=== PATIENT | female | born 1965 | race Caucasian/White ===

== ENCOUNTER 2017-04-10 06:15 | Emergency (ER) | payer OTHER ==
[~2017-04-10] VITALS: Ht 167.6 cm; Wt 90.2 kg
[~2017-04-10 06:15] MED LIST: ASPI-496 PO; CALC-680 PO; ESTR2TAB INJ; NIFE30TA2 PO; NIFE60TA2 PO; OXYC-302 PO; PNV1TABL4 PO; PROG50VI INJ
[2017-04-10] MEDS ORDERED: SODIUM CHLORIDE 0.9% 1,000 ML IV ONE (06:48)
[2017-04-10] MEDS ORDERED: SODIUM CHLORIDE 0.9% 1,000ML IVBOLUS ONE (07:00)
[2017-04-10] MEDS ORDERED: KETOROLAC 30 MG/1 ML IM ONE (07:00)
[2017-04-10] MEDS ORDERED: KETOROLAC 30 MG/1 ML ONE (07:08)
[2017-04-10] MEDS ORDERED: LOSA50TA6 PO (07:22)
[2017-04-10] MEDS ORDERED: DEXAMETHASONE 4 MG TABLET PO ONE (08:00)
[2017-04-10] MEDS ORDERED: DEXAMETHASONE 4 MG TABLET ONE (08:05)
[2017-04-10 08:11] LABS: RAPID INFLUENZA A Negative (Negative); RAPID INFLUENZA B Negative (Negative)
[2017-04-10 08:30] VITALS: BP 122/76
== END 2017-04-10 08:42 | disposition home or self-care (01) ==
LOC: ED 08:19
DX: J00 Acute nasopharyngitis [common cold] (principal)
CPT/HCPCS: 71046; 87081; 87400; 87880; 93005; 96360; 96372; 99285; J1885; J7030